=== PATIENT | female | born 1965 | race African-American/Black ===

== ENCOUNTER 2016-11-09 21:11 | Emergency (ER) | payer OTHER ==
[~2016-11-09] VITALS: Ht 182.9 cm; Wt 68.0 kg
[~2016-11-09 21:11] MED LIST: D5 1/2NS 1,000 ML IV SCH; PHENERGAN SUPP25 MG RECTAL; PROTONIX40 MG PO; RANITIDINE HCL150 MG ORAL; RANITIDINE HCL150 MG PO; TYLENOL325 MG ORAL; ZOFRAN ODT4 MG ORAL; ZOFRAN4 MG ORAL
[2016-11-09 21:21] VITALS: BP 151/95
[2016-11-09] MEDS ORDERED: Norco 5mg/325mg tab ORAL ONE (21:45)
[2016-11-09] MEDS ORDERED: Mylanta II UD 30ml ORAL ONE (21:45)
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
[2016-11-09 22:08] LABS: BASOPHILS % (AUTO) 0.8 % (0.0-2.0); EOSINOPHILS % (AUTO) 0.3 % (0.0-3.0); LYMPHOCYTES % (AUTO) 16.1 % (20.0-45.0); MEAN CORPUSCULAR HEMOGLOBIN 27.2 PG (27.0-31.0); MEAN CORPUSCULAR HGB CONC 29.3 G/DL (32.0-36.0); MEAN CORPUSCULAR VOLUME 93 FL (80-99); MEAN PLATELET VOLUME 9.1 FL (6.5-10.1); MONOCYTES % (AUTO) 5.1 % (1.0-10.0); NEUTROPHILS % (AUTO) 77.7 % (45.0-75.0); PLATELET COUNT 131 K/UL (150-450); RED BLOOD COUNT 4.06 M/UL (4.20-5.40); WHITE BLOOD COUNT 6.5 K/UL (4.8-10.8)
[2016-11-09 22:23] LABS: ALANINE AMINOTRANSFERASE 15 U/L (3-33); ALBUMIN/GLOBULIN RATIO 1.1 (1.0-2.7); ANION GAP 38 (5-15); ASPARTATE AMINO TRANSFERASE 40 U/L (5-40); CALCIUM 9.9 mg/dL (8.6-10.2); CARBON DIOXIDE 12 mEQ/L (20-30); CHLORIDE 92 mEQ/L (98-107); CREATININE 0.8 mg/dL (0.5-0.9); GLOMERULAR FILTRATION RATE > 60 mL/min (>60); HEMOLYSIS 142; LIPASE 12 U/L (< 60); POTASSIUM 4.5 mEQ/L (3.4-4.9); SODIUM 142 mEQ/L (135-145); TOTAL PROTEIN 8.5 g/dL (6.6-8.7)
[2016-11-09] MEDS ORDERED: D5NS 1,000 ML IV SCH (23:00)
[2016-11-09] MEDS ORDERED: LORazepam Inj 2mg/ml 1ml IV ONE (23:00)
[2016-11-09 23:15] VITALS: BP 145/90
[2016-11-09] MEDS ORDERED: Mylanta II UD 30ml ORAL PRN (23:15)
[2016-11-09] MEDS ORDERED: Nitroglycerin Subl 0.4mg tab (Bottle Of 25) SL PRN (23:15)
[2016-11-09] MEDS ORDERED: Miralax 17gm pkt ORAL PRN (23:15)
[2016-11-09 23:20] LABS: APPEARANCE,URINE CLEAR; KETONES,URINE 4+ (NEGATIVE); LEUKOCYTE ESTERASE ,URINE NEGATIVE (NEGATIVE); NITRITE,URINE NEGATIVE (NEGATIVE); PH,URINE 6 (4.5-8.0); PROTEIN,URINE 2+ (NEGATIVE); UROBILINOGEN,URINE NORMAL MG/DL (0.0-1.0)
[2016-11-09 23:21] LABS: BACTERIA,URINE FEW /HPF; RBC,URINE 0-2 /HPF (0 - 2); SQUAMOUS EPITHELIAL CELL,UR FEW /LPF (NONE/OCC); WBC,URINE 0-2 /HPF (0 - 2)
[2016-11-09 23:22] LABS: AMORPHOUS SEDIMENT,UR FEW /LPF
[2016-11-10 00:53] LABS: ANION GAP 31 (5-15); CALCIUM 8.6 mg/dL (8.6-10.2); CARBON DIOXIDE 15 mEQ/L (20-30); CHLORIDE 94 mEQ/L (98-107); CREATININE 0.6 mg/dL (0.5-0.9); GLOMERULAR FILTRATION RATE > 60 mL/min (>60); HEMOLYSIS 3; POTASSIUM 3.5 mEQ/L (3.4-4.9); SODIUM 140 mEQ/L (135-145)
[2016-11-10] MEDS ORDERED: Morphine Sulfate 4mg/ml Inj IVP ONE (01:00)
[2016-11-10 01:15] VITALS: BP 140/93
[2016-11-10] MEDS ORDERED: Metoclopramide 10mg/2ml Inj IVP ONE (02:00)
[2016-11-10 03:25] VITALS: BP 146/98
[2016-11-10] MEDS ORDERED: Heparin 5000 units/ml inj SUBQ SCH (09:00)
--- NOTE | 2016-11-10 09:33 | Diagnostic Imaging Report ---
Indication: Abdominal pain Technique: Continuous helical transaxial imaging of the abdomen and pelvis was obtained from the lung bases to the pubic symphysis. No intravenous contrast was administered. Coronal 2-D reformats were also obtained. Total Dose length Product (DLP): [address] Dose Index Volume (CTDIvol): 19 mGy Comparison: 01/06/15 Findings: The lung bases are clear. The liver is low in attenuation consistent with fatty infiltration. There is a 1 cm lipoma involving the fundal region of the stomach. There is no hydronephrosis. No free fluid seen. The uterus and urinary bladder are unremarkable. Appendix is seen and appears normal. Solid organ evaluation is limited on such an exam done without IV contrast. Diverticula noted in the colon. Anterolisthesis L4-5 demonstrated. Small umbilical hernia containing fat noted. Impression: No acute findings demonstrated. Fatty liver Cholelithiasis Mild atherosclerotic vascular disease Diverticulosis of colon Spondylosis and L4-5 spondylolisthesis. Small umbilical hernia containing fat. [facility] has communicated the preliminary results to the Emergency Department. Their findings are largely concordant with this report. The CT scanner at [facility] is accredited by the [employer] and the scans are performed using protocols designed to limit radiation exposure to as low as reasonably achievable to attain images of sufficient resolution adequate for diagnostic evaluation.
--- NOTE | 2016-11-10 09:45 | Diagnostic Imaging Report ---
Indication: Chest pain Technique: Continuous helical transaxial imaging of the chest was obtained from the thoracic inlet to the upper abdomen during rapid intravenous contrast administration. Arterial phase of enhancement obtained. Coronal 2-D reformats were also obtained and maximum intensity projection images in multiple planes. Study obtained in a Siemens sensation [address] Total Dose length Product (DLP): [address] Dose Index Volume (CTDIvol): 13, 38, 23 mGy Comparison: None Findings: Pulmonary artery is not well opacified. Centrally there is no obvious filling defect. More distal branches are not evaluated adequately. Cardiomegaly is present. There is posterior basilar atelectasis. There is a suggestion of low attenuation involving the liver. There is a suggestion of a small nodule in the left adrenal gland. Aorta is mildly ectatic. There is no evidence of dissection or aneurysm. Impression: Limited evaluation for pulmonary embolus as discussed above. No evidence of aortic aneurysm or dissection. Posterior basilar atelectasis and/or scarring. Fatty liver [facility] has communicated the preliminary results to the Emergency Department. Their findings are largely concordant with this report. The CT scanner at [facility] is accredited by the [employer] and the scans are performed using protocols designed to limit radiation exposure to as low as reasonably achievable to attain images of sufficient resolution adequate for diagnostic evaluation.
== END 2016-11-10 03:25 | disposition short-term general hospital (02) ==
LOC: EDBD 21:11 → EMR 22:49 → EDBEDREQ 11-10 01:00 → EMR 11-10 03:25
DX: J41.0 Simple chronic bronchitis (principal); R10.84 Generalized abdominal pain; E87.2 Acidosis; F14.10 Cocaine abuse, uncomplicated; K21.9 Gastro-esophageal reflux disease without esophagitis; J44.9 Chronic obstructive pulmonary disease, unspecified; J45.909 Unspecified asthma, uncomplicated; Z88.6 Allergy status to analgesic agent; Z88.0 Allergy status to penicillin
CPT/HCPCS: 36415; 71275; 74176; 80048; 80053; 80300; 81003; 83690; 85025; 96360; 96361; 96374; 96375; 99285; J2270; J2405; J2765; Q9967